=== PATIENT | male | born 1945 | race Caucasian/White ===

== ENCOUNTER 2020-03-14 15:09 | Emergency (ER) | payer MEDICARE, BC ==
[2020-03-14] MEDS ORDERED: Adacel Vial IM ONE ×2 (16:06→16:07)
[2020-03-14] MEDS ORDERED: XYLOCAINE 1% HCL 20 ML MDV ONE (16:06)
[2020-03-14] MEDS ORDERED: XYLOCAINE 1% HCL 20 ML MDV IJ ONE (16:06)
[2020-03-14] MEDS ORDERED: BACIGUENT PACKET ONE (16:07)
--- NOTE | 2020-03-14 16:16 | ERPHSYRPT ---
- History of Present Illness Time Seen by Provider: 03/14/20 15:50 Source: patient Exam Limitations: no limitations Physician History: This is a 75-year-old right-handed male who got a fishhook stuck on the dorsal aspect of his left hand. Occurred prior to arrival. Patient's last tetanus shot was approximately 10 years ago or earlier per his report. It is a single fishhook present. Timing/Duration: today Quality: painful Severity: mild Location: hands (Dorsal aspect left hand) Associated Symptoms: denies symptoms Travel Risk - International Travel Have you traveled outside of the country in past 3 weeks: No - Coronavirus Screening Are you exhibiting any of the following symptoms?: No Close contact with a COVID-19 positive Pt in past 14-21 Days: No - Review of Systems Constitutional: No Symptoms Eyes: No Symptoms Ears, Nose, & Throat: No Symptoms Respiratory: No Symptoms Cardiac: No Symptoms Abdominal/Gastrointestinal: No Symptoms Genitourinary Symptoms: No Symptoms Musculoskeletal: No Symptoms Skin: Other ([place] dorsal aspect left hand) Neurological: No Symptoms Psychological: No Symptoms Endocrine: No Symptoms Hematologic/Lymphatic: No Symptoms Immunological/Allergic: No Symptoms All Other Systems: Reviewed and Negative - Past Medical History Pertinent Past Medical History: No Neurological History: No Pertinent History ENT History: No Pertinent History Cardiac History: No Pertinent History Respiratory History: No Pertinent History Endocrine Medical History: No Pertinent History Musculoskeletal History: No Pertinent History GI Medical History: No Pertinent History History: No Pertinent History Psycho-Social History: No Pertinent History Male Reproductive Disorders: No Pertinent History - Past Surgical History Past Surgical History: No Neuro Surgical History: No Pertinent History Cardiac: No Pertinent History Respiratory: No Pertinent History Gastrointestinal: No Pertinent History Genitourinary: No Pertinent History Musculoskeletal: No Pertinent History Male Surgical History: No Pertinent History - Physical Exam General Appearance: no apparent distress, alert Eye Exam: PERRL/EOMI, eyes nml inspection Ears, Nose, Throat Exam: normal ENT inspection, moist mucous membranes Neck Exam: normal inspection, non-tender, supple, full range of motion Respiratory Exam: airway intact, No chest tenderness, No respiratory distress Gastrointestinal/Abdomen Exam: No tenderness Rectal Exam: not done Back Exam: normal inspection, normal range of motion, No CVA tenderness, No v ertebral tenderness Extremity Exam: normal range of motion, pelvis stable Neurologic Exam: alert, oriented x 3, cooperative, 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 1% lidocaine plain was injected to the skin at the area of the skin hook entrance site. Using wire cutters the fishhook was cut pushed forward and removed completely. The area was then cleaned and dried and a Band-Aid was placed overlying this. The patient received Adacel intramuscular injection. Patient tolerated procedure well. There is no complications. - Course Nursing assessment & vital signs reviewed: Yes Ordered Tests: Medication Summary Discontinued Medications Generic Name Dose Route Start Last Admin Trade Name Freq PRN Reason Stop Dose Admin Bacitracin Zinc Confirm 03/14/20 16:07 Baciguent Packet Administered 03/14/20 16:08 Dose 1 gm .ROUTE .STK-MED ONE Diphtheria/Tetanus/Acell Pertussis 0.5 ml 03/14/20 16:06 Adacel Vial IM 03/14/20 16:07 .ONCE ONE Diphtheria/Tetanus/Acell Pertussis Confirm 03/14/20 16:07 Adacel Vial Administered 03/14/20 16:08 Dose 0.5 ml IM .STK-MED ONE Lidocaine HCl 5 ml 03/14/20 16:06 Xylocaine 1% Hcl 20 Ml Mdv IJ 03/14/20 16:07 STAT ONE Lidocaine HCl Confirm 03/14/20 16:06 Xylocaine 1% Hcl 20 Ml Mdv Administered 03/14/20 16:07 Dose 1 ml .ROUTE .STK-MED ONE - Progress Progress: improved, pain not gone completely Counseled pt/family regarding: diagnosis - Departure Departure Disposition: Home Clinical Impression: [place] injury to finger Condition: Stable Critical Care Time: No Additional Instructions: Take your antibiotics as prescribed. Do not use lotions ointments or creams to the site. Keep the area clean daily with soap and water. Follow-up with primary care physician if there is any concerns. Prescriptions: Cephalexin Mh 500 mg [Keflex 500 mg] 500 mg PO TID #21 capsule
[2020-03-14 16:22] VITALS: PULSE 72; O2SAT 97
== END 2020-03-14 16:37 | disposition home or self-care (01) ==
LOC: ED 15:09
DX: S69.82XA Other specified injuries of left wrist, hand and finger(s), initial encounter (principal); W45.8XXA Other foreign body or object entering through skin, initial encounter; W20.8XXA Other cause of strike by thrown, projected or falling object, initial encounter; Y93.89 Activity, other specified; Y92.89 Other specified places as the place of occurrence of the external cause
CPT/HCPCS: 90471; 90715; 96372; 99284; A9270-GY